=== PATIENT | female | born 2000 | race Caucasian/White ===

== ENCOUNTER 2019-02-09 21:27 | Emergency (ER) | payer OTHER ==
[2019-02-09 21:50] VITALS: BP 143/83
--- NOTE | 2019-02-09 22:08 | UC ---
Lower Extremity/Ankle HPI - HPI Summary HPI Summary: 18-year-old woman comes in with a chief complaint of left great toe pain. 2 days ago she dropped a bottle on her left great toe and had immediate pain. She 's had some bleeding under the toenail. Pain is on the dorsum underneath the toenail. When she bears weight she denies that she has pain with weight bearing. She only has pain when she presses on the toenail from above. No weakness or numbness. Denies any other injuries. - History of Current Complaint Chief Complaint: UCLowerExtremity Stated Complaint: TOE INJURY Time Seen by Provider: 02/09/19 21:42 Hx Last Menstrual Period: unk, on lauren BCP daily Pain Intensity: 3 - Allergies/Home Medications Allergies/Adverse Reactions: Allergies Allergy/AdvReac Type Severity Reaction Status Date / Time No Known Allergies Allergy Verified 02/09/19 21:50 Home Medications: Home Medications Norethindrone [Lainey] 0.35 mg PO DAILY 02/09/19 [History Confirmed 02/09/19] PMH/Surg Hx/FS Hx/Imm Hx Previously Healthy: Yes - Surgical History Surgical History: None - Family History Known Family History: Positive: Non-Contributory - Social History Alcohol Use: None Substance Use Type: None Smoking Status (MU): Never Smoked Tobacco Review of Systems All Other Systems Reviewed And Are Negative: Yes Constitutional: Positive: Negative Skin: Positive: Other - see hpi Eyes: Positive: Negative ENT: Positive: Negative Respiratory: Positive: Negative Cardiovascular: Positive: Negative Gastrointestinal: Positive: Negative Motor: Positive: Negative Neurovascular: Positive: Negative Musculoskeletal: Positive: Other: - see hpi Neurological: Positive: Negative Psychological: Positive: Negative Is Patient Immunocompromised?: No Physical Exam Triage Information Reviewed: Yes Appearance: Well-Appearing, No Pain Distress, Well-Nourished Vital Signs: Initial Vital Signs Temp 98 F 02/09/19 21:46 Pulse 83 02/09/19 21:46 Resp 16 02/09/19 21:46 BP 143/83 02/09/19 21:46 Pulse Ox 100 02/09/19 21:46 Vital Signs Reviewed: Yes Eye Exam: Normal Eyes: Positive: Conjunctiva Clear Neck: Positive: Supple Respiratory: Positive: No respiratory distress Musculoskeletal: Positive: Strength Intact, ROM Intact, Other: - Left great toenail has a subungual hematoma that is tender to palpation. The plantar aspect of the toe is nontender to palpation there is no skin break. The great toenail is intact. Neurological: Positive: Alert Psychological: Positive: Age Appropriate Behavior Skin Exam: Normal Lower Extremity Course/Dx - Course Course Of Treatment: I performed trephination of the left great toenail subungual hematoma. There was blood expressed and decreased pain. Nursing applied dressing. Patient declined a postop shoe and will wear shoes that have a large toebox or sandals without any cover over the top of the toe until healed. Follow-up with [facility] if not completely improved or any other questions or concerns. - Differential Dx/Diagnosis Provider Diagnosis: Subungual hematoma of great toe of left foot, Contusion of great toe of left foot Discharge ED - Sign-Out/Discharge Documenting (check all that apply): Patient Departure All imaging exams completed and their final reports reviewed: No Studies - Discharge Plan Condition: Stable Disposition: HOME Patient Education Materials: Subungual Hematoma (ED), Foot Contusion (ED) Referrals: [facility] [Provider Group] Additional Instructions: FOLLOW UP WITH YOUR DOCTOR IF NOT COMPLETELY IMPROVED. GET RECHECKED SOONER IF YOUR CONDITION WORSENS OR ANY QUESTIONS OR CONCERNS. - Billing Disposition and Condition Condition: STABLE Disposition: Home
== END 2019-02-09 22:12 | disposition home or self-care (01) ==
LOC: UCEAST 21:27
DX: S90.212A Contusion of left great toe with damage to nail, initial encounter (principal); W20.8XXA Other cause of strike by thrown, projected or falling object, initial encounter; Y92.9 Unspecified place or not applicable
CPT/HCPCS: 11740; 99202; G0463